=== PATIENT | male | born 1970 | race Caucasian/White ===

== ENCOUNTER 2017-06-06 09:35 | Emergency (ER) | payer SELFPAY ==
[~2017-06-06] VITALS: Ht 165.1 cm; Wt 68.0 kg
[~2017-06-06 09:35] MED LIST: ABIL30TA5 PO; FERR325T PO; FLUP5TAB PO; FOLI1TAB4 PO; LITH300C2 PO; VITA100T2 PO
[2017-06-06 09:39] VITALS: BP 152/104; PULSE 95; RESP 16; TEMP 98.6; O2SAT 99
--- NOTE | 2017-06-06 09:47 | PD ---
HPI Chief Complaint: Medical Clearance Time Seen by Provider: 09:46 Travel History International Travel<30 days: No Contact w/Intl Traveler<30days: No Traveled to known affect area: No History of Present Illness HPI 47-year-old male presents emergency department with obvious marily. He is a poor historian. He is requesting something for lower back pain, and refills of his medications. He states he was released from residential 3 days ago and has been off his meds during that time. He states he is not suicidal or homicidal in any way. He has no other complaints. He is allergic to Haldol and paliperidone. 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.) Past Surgical History Other Surgery: No Social History Alcohol Use: Yes (daily) Tobacco Use: Yes (1 PPD) Substance Use: Yes (STATES HE SMOKED CRACK ) Allergies-Medications (Allergen,Severity, Reaction): Coded Allergies: paliperidone (Unverified Allergy, Unknown, SEIZURES, 11/30/16) haloperidol (Unverified Adverse Reaction, Severe, 11/30/16) States must take Cogentin if given Haldol/ cannot take the old form of Haldol Reported Meds & Prescriptions Reported Meds & Active Scripts Active Zyprexa (Olanzapine) 20 Mg Tab 20 Mg PO DAILY Ketorolac (Ketorolac Tromethamine) 10 Mg Tab 10 Mg PO TID Lisinopril 5 Mg Tab 5 Mg PO DAILY Vitamin B-1 (Thiamine HCl) 100 Mg Tab 100 Mg PO DAILY 15 Days [place] Carbonate 300 Mg Cap 600 Mg PO BID 15 Days Folate (Folic Acid) 1 Mg Tab 1 Mg PO DAILY 15 Days Fluphenazine (Fluphenazine HCl) 5 Mg Tab 5 Mg PO TID 15 Days Ferrous Sulfate 325 Mg Tab 325 Mg PO BID@12,17 15 Days Abilify (Aripiprazole) 30 Mg Tab 30 Mg PO HS 15 Days Review of Systems ROS Limitations: Psychotic, Poor Historian Except as stated in HPI: all other systems reviewed are Neg General / Constitutional: No: Fever Eyes: No: Visual changes HENT: No: Headaches Cardiovascular: No: Chest Pain or Discomfort Respiratory: No: Shortness of Breath Gastrointestinal: No: Abdominal Pain Genitourinary: No: Dysuria Musculoskeletal: No: Pain Skin: No Rash Neurologic: No: Weakness Psychiatric: No: Depression Endocrine: No: Polydipsia Hematologic/Lymphatic: No: Easy Bruising Physical Exam Exam Limitations: Poor Historian, Psychotic Narrative GENERAL: Patient appears manic but otherwise in no acute distress. SKIN: Warm and dry. Normal color. Normal turgor HEAD: Atraumatic. Normocephalic. EYES: Pupils equal and round. No scleral icterus. No injection or drainage. ENT: No nasal bleeding or discharge. Mucous membranes pink and moist. Poor dental health. Pharynx is clear. Airways patent NECK: Trachea midline. Supple nontender CARDIOVASCULAR: Regular rate and rhythm. RESPIRATORY: No accessory muscle use. Clear to auscultation. Breath sounds equal bilaterally. GASTROINTESTINAL: Abdomen soft, non-tender, nondistended. Hepatic and splenic margins not palpable. MUSCULOSKELETAL: Extremities without clubbing, cyanosis, or edema. No obvious deformities. NEUROLOGICAL: Awake and alert. No obvious cranial nerve deficits. Motor grossly within normal limits. Five out of 5 muscle strength in the arms and legs. Normal speech. PSYCHIATRIC: Patient is cooperative, but has obvious flight of ideas and pressured speech. I do not believe him to be suicidal or homicidal. Data Data Last Documented VS Vital Signs Date Time Temp Pulse Resp B/P (MAP) Pulse Ox O2 Delivery O2 Flow Rate FiO2 06/06/17 09:39 98.6 95 16 152/104 (120) 99 Orders Orders Ketorolac Inj (Toradol Inj) (06/06/17 10:00) Olanzapine (Zyprexa) (06/06/17 10:00) Lisinopril (Prinivil) (06/06/17 10:00) [facility] Medical Decision Making Medical Screen Exam Complete: Yes Emergency Medical Condition: Yes Medical Record Reviewed: Yes Differential Diagnosis Bipolar disorder. Low back pain. Marily. Medication refill. Narrative Course Patient appears medically stable at time of exam. Patient is given Toradol 60 mg IM. Patient is given Zyprexa 20 mg p.o. now. Patient is given lisinopril 5 mg now. Patient is given a prescription for Zyprexa 20 mg daily #30. Patient is given a prescription for lisinopril 5 mg daily #30. Patient is given a prescription for ketorolac 10 mg up to 3 times daily as needed #30. Patient is referred to [facility] or [facility] for follow-up. Diagnosis Primary Impression: Medication refill Referrals: [facility] (Out patient) [facility] Patient Instructions: General Instructions Additional Instructions: Patient appears medically stable at time of exam. Patient is given Toradol 60 mg IM. Patient is given Zyprexa 20 mg p.o. now. Patient is given lisinopril 5 mg now. Patient is given a prescription for Zyprexa 20 mg daily #30. Patient is given a prescription for lisinopril 5 mg daily #30. Patient is given a prescription for ketorolac 10 mg up to 3 times daily as needed #30. Patient is referred to [facility] or [facility] for follow-up. Med/Other Pt SpecificInfo: Prescription(s) given Scripts Olanzapine (Zyprexa) 20 Mg Tab 20 MG PO DAILY, #30 TAB 0 Refills Prov: Tyrell Villa MD 06/06/17 Ketorolac (Ketorolac) 10 Mg Tab 10 MG PO TID for Pain Management, #30 TAB 0 Refills Prov: Tyrell Villa MD 06/06/17 Lisinopril (Lisinopril) 5 Mg Tab 5 MG PO DAILY for Blood Pressure Management, #30 TAB 0 Refills Prov: Tyrell Villa MD 06/06/17 Disposition: 01 DISCHARGE HOME Condition: Stable Emery Gillis Jun 06, 2017 09:47
[2017-06-06] MEDS ORDERED: KETO10 PO (09:58)
[2017-06-06] MEDS ORDERED: ZYPR20TA PO (09:58)
[2017-06-06] MEDS ORDERED: LISI-519 PO (09:58)
[2017-06-06] MEDS ORDERED: OLANZapine 10 MG TAB PO ONE (10:00)
[2017-06-06] MEDS ORDERED: LISINOPRIL 5 MG TAB PO ONE (10:00)
[2017-06-06] MEDS ORDERED: KETOROLAC TROMETHAMINE 60 MG/2 ML (IM) VIAL IM ONE (10:00)
[2017-06-06 10:21] VITALS: BP 162/89
== END 2017-06-06 10:31 | disposition home or self-care (01) ==
LOC: NEPD 09:35
DX: Z76.0 Encounter for issue of repeat prescription (principal); F31.9 Bipolar disorder, unspecified; F41.9 Anxiety disorder, unspecified; I10 Essential (primary) hypertension; F17.210 Nicotine dependence, cigarettes, uncomplicated; Z86.73 Personal history of transient ischemic attack (TIA), and cerebral infarction without residual deficits; Z86.19 Personal history of other infectious and parasitic diseases; Z88.8 Allergy status to other drugs, medicaments and biological substances; Z79.899 Other long term (current) drug therapy; Z91.14 Patient's other noncompliance with medication regimen
CPT/HCPCS: 96372; 99284; J1885

== ENCOUNTER 2017-06-09 04:39 | Emergency (ER) | payer SELFPAY ==
[~2017-06-09] VITALS: Ht 185.4 cm; Wt 90.0 kg
[~2017-06-09 04:39] MED LIST changes: +KETO10 PO; +LISI-519 PO; +ZYPR20TA PO
[2017-06-09 04:54] VITALS: BP 134/72; PULSE 110; RESP 18; TEMP 98.5; O2SAT 97
[2017-06-09] MEDS ORDERED: KETOROLAC TROMETHAMINE 60 MG/2 ML (IM) VIAL IM ONE (05:00)
--- NOTE | 2017-06-09 05:36 | RADRPT ---
EXAM DATE/TIME: 06/09/2017 05:04 [place] COMPARISON: No previous studies available for comparison. INDICATIONS : Right knee pain. MEDICAL HISTORY : None. SURGICAL HISTORY : None. ENCOUNTER: Initial ACUITY: 1 day PAIN SCORE: 04/27 LOCATION: Right knee FINDINGS: A 4 view examination of the right knee was obtained and demonstrates sclerosis and mild joint space n arrowing in the medial compartment. No malalignment. There is no definite joint effusion. The proxima l tibia and fibula are intact. The soft tissues are unremarkable. CONCLUSION: Mild degenerative change in the medial compartment. Feliberto Camara MD on June 09, 2017 at 5:33 Board Certified Radiologist. This report was verified electronically.
--- NOTE | 2017-06-09 06:02 | PD ---
HPI Chief Complaint: Musculoskeletal Complaint Time Seen by Provider: 04:52 Travel History International Travel<30 days: No Contact w/Intl Traveler<30days: No Traveled to known affect area: No History of Present Illness HPI This apparently slipped in a store JPTA and then called 911 and comes via EMS for right knee pain due to fall on his R knee . called paramedics himself comes in having right knee pain.. Pt has not seen another MD nor taken any meds for this pain PFSH Past Medical History Bipolar Disorder: Yes (NON COMPLIANT WITH MEDICATION) Anxiety: Yes Depression: No Cancer: No Cardiovascular Problems: Yes (DC PER PT) Cerebrovascular Accident: Yes Diabetes: No Diminished Hearing: No Endocrine: No Gastrointestinal Disorders: Yes Genitourinary: No Headaches: No Hypertension: Yes Immune Disorder: Yes (HEP B) Implanted Vascular Access Dvce: No Musculoskeletal: Yes Neurologic: Yes Psychiatric: Yes Reproductive: No Respiratory: No Immunizations Current: Yes Migraines: No Seizures: Yes (Patient states seizure was reaction to Haldol.) Tetanus Vaccination: Unknown Influenza Vaccination: No Past Surgical History Other Surgery: No Social History Alcohol Use: Yes (daily) Tobacco Use: Yes (1 PPD) Substance Use: Yes (STATES HE SMOKED CRACK and does dilaudid ) Allergies-Medications (Allergen,Severity, Reaction): Coded Allergies: paliperidone (Unverified Allergy, Unknown, SEIZURES, 06/09/17) haloperidol (Unverified Adverse Reaction, Severe, 06/09/17) States must take Cogentin if given Haldol/ cannot take the old form of Haldol Reported Meds & Prescriptions Reported Meds & Active Scripts Active Zyprexa (Olanzapine) 20 Mg Tab 20 Mg PO DAILY Ketorolac (Ketorolac Tromethamine) 10 Mg Tab 10 Mg PO TID Lisinopril 5 Mg Tab 5 Mg PO DAILY [place] Carbonate 300 Mg Cap 600 Mg PO BID 15 Days Fluphenazine (Fluphenazine HCl) 5 Mg Tab 5 Mg PO TID 15 Days Abilify (Aripiprazole) 30 Mg Tab 30 Mg PO HS 15 Days Review of Systems Except as stated in HPI: all other systems reviewed are Neg Musculoskeletal: Positive: Arthralgias Physical Exam Narrative GENERAL: inappropriate tlak to staff and slightly bizarre and beligerent air to his affect SKIN: Warm and dry. HEAD: Atraumatic. Normocephalic. EYES: Pupils equal and round. No scleral icterus. No injection or drainage. ENT: No nasal bleeding or discharge. Mucous membranes pink and moist. NECK: Trachea midline. No JVD. CARDIOVASCULAR: Regular rate and rhythm. RESPIRATORY: No accessory muscle use. Clear to auscultation. Breath sounds equal bilaterally. GASTROINTESTINAL: Abdomen soft, non-tender, nondistended. Hepatic and splenic margins not palpable. MUSCULOSKELETAL: Extremities R knee pain without obvious injury nor deformity . NEUROLOGICAL: Awake and alert. No obvious cranial nerve deficits. Motor grossly within normal limits. Five out of 5 muscle strength in the arms and legs. . PSYCHIATRIC: [place] and demanding affect asking for food and med refills and drinks and demanding voice towards staff Data Data Last Documented VS Vital Signs Date Time Temp Pulse Resp B/P (MAP) Pulse Ox O2 Delivery O2 Flow Rate FiO2 06/09/17 04:54 98.5 110 18 134/72 (92) 97 Orders Orders Knee, Complete (4vws) (06/09/17 ) Ketorolac Inj (Toradol Inj) (06/09/17 05:00) Ed Discharge Order (06/09/17 05:58) MDM Medical Decision Making Medical Screen Exam Complete: Yes Emergency Medical Condition: Yes Differential Diagnosis maligering , vs knee contusion vs effusion , vs psych illness Narrative Course Xray and toradol IM and d.c home to follow up outpt clinic with 48 hrs Diagnosis Primary Impression: Knee contusion Qualified Codes: S80.01XA - Contusion of right knee, initial encounter Patient Instructions: Contusion in Adults (ED), General Instructions Departure Forms: Tests/Procedures Donovan Roa MD Jun 09, 2017 06:02
== END 2017-06-09 06:05 | disposition home or self-care (01) ==
LOC: NEPE 04:39
DX: S80.01XA Contusion of right knee, initial encounter (principal); W01.0XXA Fall on same level from slipping, tripping and stumbling without subsequent striking against object, initial encounter; Y92.512 Supermarket, store or market as the place of occurrence of the external cause
CPT/HCPCS: 73564; 96372; 99283; J1885